=== PATIENT | female | born 1980 | race Two or more races ===

== ENCOUNTER 2024-10-21 14:56 | Emergency (ER) | payer MEDICAID ==
[2024-10-22] MEDS ORDERED: IBU600T PO (14:23)
== END 2024-10-21 15:40 | disposition left against medical advice (07) ==
LOC: ER 14:56
DX: M79.89 Other specified soft tissue disorders (principal); Z53.21 Procedure and treatment not carried out due to patient leaving prior to being seen by health care provider

== ENCOUNTER 2024-10-22 12:52 | Emergency (ER) | payer MEDICAID ==
[~2024-10-22] VITALS: Ht 160 cm; Wt 49.4 kg
[2024-10-22 12:58] VITALS: TEMP 97.9
[2024-10-22 13:08] VITALS: BP 125/82; PULSE 103; RESP 18; O2SAT 98
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
[2024-10-22] MEDS: HYDROcodone-ACET 5/325MG TAB PO ONE (13:31)
--- NOTE | 2024-10-22 13:41 | DVH ---
CLINICAL INDICATION: injury TECHNIQUE: XY R WRIST 3+ VIEW XRAY Comparison: None FINDINGS/IMPRESSION: : No acute fracture or dislocation of the right wrist.
--- NOTE | 2024-10-22 13:49 | DVH ---
CLINICAL INDICATION: injury TECHNIQUE: AP and lateral views of the right forearm were performed. XY R FOREARM XRAY Comparison: None FINDINGS/IMPRESSION: : 1. No acute fracture of the right radius or ulna. 2. Postoperative changes of right radial diaphyseal plate and screw fixation, without evidence of sherry dware failure or complication.
[2024-10-22] MEDS ORDERED: IBU600T PO (14:23)
== END 2024-10-22 14:34 | disposition home or self-care (01) ==
LOC: ER 12:52
DX: S50.11XA Contusion of right forearm, initial encounter (principal); X58.XXXA Exposure to other specified factors, initial encounter; Y93.89 Activity, other specified; Y92.89 Other specified places as the place of occurrence of the external cause; Y99.8 Other external cause status
CPT/HCPCS: 73090; 73110